=== PATIENT | female | born 1945 | race Asian ===

== ENCOUNTER 2017-09-10 20:22 | Inpatient (IN) | payer MEDICARE, MEDICAID ==
--- NOTE | 2017-09-10 21:45 | ED Physician Chart ---
ED Chief Complaint/HPI - Patient Information Date Seen:: 09/10/17 Time Seen:: 21:44 Chief Complaint:: Vomiting, abnormal labs History of Present Illness:: 72 yo female was brought from SNF to ER due to vomiting, low K, decreased PO intake. She had weight loss during past 3 months. She was hospitalized for UTI 2 weeks ago. The patient also had low back pain. Allergies:: Allergies Allergy/AdvReac Type Severity Reaction Status Date / Time No Known Allergies Allergy Verified 09/10/17 20:28 Vitals:: Vital Signs - 8 hr 09/10/17 20:25 Temp 98.0 F HR 104 RR 18 BP 116/67 O2 Sat % 98 ED Review of Systems - Review of Systems General/Constitutional: No fever, Other (weight loss) ED Past Medical History - Past Medical History Past Medical History: HTN, DM, Dyslipidemia, Dementia, Other (VZV) Social History: Non Smoker, No Alcohol, No Drug Use Surgical History: (x1), other (Cateract) Family Medical History - Family Member Mother History Unknown: Yes ED Septic Shock - <6hrs of presentation: Vital Signs: Vital Signs - 8 hr 09/10/17 20:25 Temp 98.0 F HR 104 RR 18 BP 116/67 O2 Sat % 98
[2017-09-10 21:49] LABS: HEMATOCRIT 31.3 % (41.0-60); HEMOGLOBIN 10.1 gm/dL (12-16); MEAN CELL VOLUME 86.6 fl (81-100); MEAN CORPUSCULAR HEMOGLOBIN 27.9 pg (27.0-31.0); MEAN CORPUSCULAR HGB CONC 32.2 pg (28.0-36.0); PLATELET COUNT 198 Th/cmm (150-400); RED BLOOD COUNT 3.61 Mil/cmm (3.80-5.20); RED CELL DISTRIBUTION WIDTH 18.3 % (11.5-20.0); WHITE BLOOD COUNT 5.5 Th/cmm (4.8-10.8)
[2017-09-10 21:52] LABS: MANUAL DIFF REQUIRED? YES
[2017-09-10 22:07] LABS: ALB/GLOB RATIO 0.6 (1.0-1.8); ALBUMIN 2.6 gm/dL (3.7-5.3); ALKALINE PHOSPHATASE 197 U/L (34-104); ANION GAP 16.9 (7.0-16.0); BILIRUBIN,TOTAL 4.1 mg/dL (0.3-1.0); BUN - UREA NITROGEN 5 mg/dL (7-25); CALCIUM SERUM 7.7 mg/dL (8.6-10.3); CARBON DIOXIDE 20.1 mEq/L (21.0-31.0); CHLORIDE 95 mEq/L (98-107); CREATININE - SERUM 0.9 mg/dL (0.6-1.2); GLUCOSE 319 mg/dL (70-105); SGOT 276 U/L (13-39); SGPT/ALT 50 U/L (7-52); SODIUM SERUM 127 mEq/L (136-145); TOTAL PROTEIN,SERUM 6.7 gm/dL (6.0-8.3)
[2017-09-10] MEDS ORDERED: Sodium Chloride 0.9% 1,000 ML IV ONE (22:32)
[2017-09-10 23:17] LABS: URINE MICROSCOPIC INDICATED? YES; URINE SOURCE RANDOM
[2017-09-10 23:20] LABS: URINE BILIRUBIN MODERATE (NEGATIVE); URINE BLOOD NEGATIVE (NEGATIVE); URINE GLUCOSE (UA) >=1000 mg/dL (NEGATIVE); URINE KETONE 15 mg/dL (NEGATIVE); URINE LEUKOCYTE ESTERASE SMALL (NEGATIVE); URINE NITRATE NEGATIVE (NEGATIVE); URINE PROTEIN TRACE mg/dL (NEGATIVE)
[2017-09-10 23:33] LABS: URINE CLARITY SLIGHT CLOUDY (CLEAR); URINE COLOR ORANGE
[2017-09-10 23:37] LABS: URINE BACTERIA 3+ /hpf (NONE SEEN); URINE EPITHELIAL CELLS FEW /lpf (FEW); URINE WBC >100 /hpf (0-5)
[2017-09-11] MEDS ORDERED: cefTRIAXone 1 GM in Sodium Chloride 0.9% 50 ML IV ONE (00:19)
[2017-09-11 00:41] LABS: TOTAL CELLS COUNTED 100
[2017-09-11 00:42] LABS: ANISOCYTOSIS 1+; ATYPICAL LYMPH 1 %; BAND NEUTROPHILE 2 % (0-10); EOSINOPHIL 1 % (0-5); HYPOCHROMIA 1+; LYMPHOCYTE 15 % (20-50); MONOCYTE 3 % (2-10); NEUTROPHILS 78 % (40-80); PLATELET ESTIMATE ADEQUATE (NORMAL)
[2017-09-11 07:03] LABS: ANION GAP 13.4 (7.0-16.0); BUN - UREA NITROGEN 4 mg/dL (7-25); CALCIUM SERUM 7.5 mg/dL (8.6-10.3); CARBON DIOXIDE 26.3 mEq/L (21.0-31.0); CHLORIDE 97 mEq/L (98-107); CREATININE - SERUM 0.8 mg/dL (0.6-1.2); GLUCOSE 257 mg/dL (70-105); SODIUM SERUM 134 mEq/L (136-145)
[2017-09-11 07:06] LABS: HEMATOCRIT 31.5 % (41.0-60); HEMOGLOBIN 10.2 gm/dL (12-16); MEAN CELL VOLUME 86.3 fl (81-100); MEAN CORPUSCULAR HEMOGLOBIN 27.9 pg (27.0-31.0); MEAN CORPUSCULAR HGB CONC 32.4 pg (28.0-36.0); MEAN PLATELET VOLUME 9.9 fl; PLATELET COUNT 234 Th/cmm (150-400); RED BLOOD COUNT 3.65 Mil/cmm (3.80-5.20); RED CELL DISTRIBUTION WIDTH 17.6 % (11.5-20.0)
[2017-09-11 07:14] LABS: MANUAL DIFF REQUIRED? YES
[2017-09-11 07:26] LABS: POTASSIUM SERUM 2.7 mEq/L (3.5-5.1)
[2017-09-11 08:07] LABS: EOSINOPHIL 1 % (0-5); LYMPHOCYTE 34 % (20-50); MONOCYTE 5 % (2-10); NEUTROPHILS 60 % (40-80); TOTAL CELLS COUNTED 100
[2017-09-11 08:12] VITALS: BP 120/57
[2017-09-11] MEDS ORDERED: Potassium Chloride 20 mEq ER Tab PO ONE (08:25)
[2017-09-11] MEDS ORDERED: LIDOCAINE IV ONE (10:00)
[2017-09-11] MEDS ORDERED: POTASSIUM CHLORIDE IV ONE (10:00)
[2017-09-11] MEDS ORDERED: SODIUM CHLORIDE 0.9% IV ONE (10:00)
[2017-09-11] MEDS ORDERED: Lactulose 10 Gm/15 mL 30mL UDC PO PRN (11:11)
[2017-09-11] MEDS ORDERED: INSULIN ASPART SLIDING SCALE 100 UNITS/ML UNIT SUBQ SCH (11:30)
--- NOTE | 2017-09-11 15:18 | Diagnostic Imaging Report ---
CHEST X-RAY: AP view INDICATION: Shortness of breath COMPARISON: None FINDINGS: There is elevation of the right hemidiaphragm. Increased bibasilar lung markings are noted. No focal consolidation or effusions. There is suggestion of a right calcified basal granuloma Heart size is at the upper limits of normal. Osseous structures are intact. IMPRESSION: Increased bibasal lung markings which may be due to subsegmental atelectasis versus scarring. Faint infiltrate is less likely but cannot be excluded.. Please correlate with clinical findings. Suggestion of a right basal calcified granuloma. Please with old exams, if available. A short-term follow-up PA and lateral view chest x-ray is recommended.
--- NOTE | 2017-09-11 15:56 | History & Physical ---
ADMIT DATE: 09/11/2017 CHIEF COMPLAINT: Vomiting and poor oral intake. HISTORY OF PRESENT ILLNESS: This is a 72-year-old female who was admitted from a [facility] facility to the Emergency Room due to vomiting and poor oral intake. The patient was recently hospitalized due to urinary tract infection. REVIEW OF SYSTEMS: GENERAL: This is a 72-year-old female that appears as stated, no fever, no chills. HEAD: No headache. EYES: No blurring of vision. No eye pain. NECK: Neck pain. No nuchal rigidity. CHEST: No chest pain, no palpitation. RESPIRATORY: No coughing. No shortness of breath. GASTROINTESTINAL: Positive vomiting, positive nausea, no diarrhea, no abdominal pain. MUSCULOSKELETAL: No muscle pain. No joint pain. SOCIAL HISTORY: The patient lives in a [facility] facility prior to hospitalization. SURGICAL HISTORY: The patient has history of cataract surgery. PSYCHIATRIC HISTORY: Includes dementia. PAST MEDICAL HISTORY: Hypertension, diabetes, and hyperlipidemia. PHYSICAL EXAMINATION: VITAL SIGNS: Temperature 99, heart rate of 90, blood pressure 115/52, respiration of 18, 100% on room air. HEENT: Head is atraumatic, normocephalic. Eyes, bilateral conjunctivae are clear. Bilateral pupils are equally round and reactive. NECK: Supple. No JVD. CARDIOVASCULAR: S1 and S2, without murmur. PULMONARY: Clear to auscultation. GASTROINTESTINAL: Soft and nontender without guarding. Positive bowel sounds. MUSCULOSKELETAL: No clubbing. No cyanosis noted. ASSESSMENT: 1. Urinary tract infection. 2. Dementia. 3. Hypertension. 4. Atrial fibrillation. 5. Parkinson's disease. 6. Diabetes mellitus. 7. Hypothyroidism. 8. Osteoarthritis. PLAN: We will admit the patient to Med/Surg Unit. We will continue IV antibiotics and we will wait for urine culture result. A consult with ID doctor, for ID management and also get a consult with Dr. Reina for dementia. Treatment plans were discussed with the patient's nurse. We will do medication reconciliation accordingly. JOB# [id number]
[2017-09-11] MEDS ORDERED: Non-Formulary Item 1 EA (Apixaban [Eliquis] 1 TAB) PO SCH (17:00)
[2017-09-11] MEDS: INSULIN ASPART SLIDING SCALE 100 UNITS/ML UNIT SUBQ SCH ×2 (17:11→22:46)
[2017-09-11 21:37] LABS: A1C % 9.4 % (4.0-6.0)
[2017-09-12] MEDS: Sodium Chloride 0.9% 1,000 ML IV SCH ×2 (00:07→13:50)
[2017-09-12] MEDS: cefTRIAXone 1 GM in Sodium Chloride 0.9% 50 ML IV SCH (00:08)
[2017-09-12 06:39] LABS: HEMOGLOBIN 9.7 gm/dL (12-16); MEAN PLATELET VOLUME 9.5 fl; RED CELL DISTRIBUTION WIDTH 17.5 % (11.5-20.0)
[2017-09-12 06:44] LABS: HEMATOCRIT 30.8 % (41.0-60); MEAN CELL VOLUME 86.8 fl (81-100); MEAN CORPUSCULAR HEMOGLOBIN 27.3 pg (27.0-31.0); MEAN CORPUSCULAR HGB CONC 31.5 pg (28.0-36.0); PLATELET COUNT 215 Th/cmm (150-400); RED BLOOD COUNT 3.55 Mil/cmm (3.80-5.20); WHITE BLOOD COUNT 5.7 Th/cmm (4.8-10.8)
[2017-09-12] MEDS: Levothyroxine 0.075 Mg Tab PO SCH (06:45)
[2017-09-12 06:49] LABS: MANUAL DIFF REQUIRED? YES
[2017-09-12 07:21] LABS: ALB/GLOB RATIO 0.6 (1.0-1.8); ALBUMIN 2.3 gm/dL (3.7-5.3); ALKALINE PHOSPHATASE 174 U/L (34-104); ANION GAP 12.2 (7.0-16.0); BILIRUBIN,TOTAL 3.7 mg/dL (0.3-1.0); BUN - UREA NITROGEN 5 mg/dL (7-25); CALCIUM SERUM 7.6 mg/dL (8.6-10.3); CARBON DIOXIDE 23.6 mEq/L (21.0-31.0); CHLORIDE 105 mEq/L (98-107); CREATININE - SERUM 0.8 mg/dL (0.6-1.2); POTASSIUM SERUM 3.8 mEq/L (3.5-5.1); SGOT 188 U/L (13-39); SGPT/ALT 53 U/L (7-52); SODIUM SERUM 137 mEq/L (136-145); TOTAL PROTEIN,SERUM 5.9 gm/dL (6.0-8.3)
[2017-09-12 07:24] LABS: GLUCOSE 167 mg/dL (70-105)
[2017-09-12 07:41] LABS: EOSINOPHIL 2 % (0-5); LYMPHOCYTE 41 % (20-50); MONOCYTE 8 % (2-10); NEUTROPHILS 49 % (40-80); TOTAL CELLS COUNTED 100
--- NOTE | 2017-09-12 08:55 | General Progress Note ---
Subjective - Review of Systems Events since last encounter: patient awake alert in no distress Objective - Results Result Diagrams: 09/12/17 05:55 09/12/17 05:55 Recent Labs: Laboratory Last Values WBC 5.7 Th/cmm (4.8-10.8) 09/12/17 05:55 RBC 3.55 Mil/cmm (3.80-5.20) L 09/12/17 05:55 Hgb 9.7 gm/dL (12-16) L 09/12/17 05:55 Hct 30.8 % (41.0-60) L 09/12/17 05:55 MCV 86.8 fl (81-100) 09/12/17 05:55 MCH 27.3 pg (27.0-31.0) 09/12/17 05:55 MCHC Differential 31.5 pg (28.0-36.0) 09/12/17 05:55 RDW 17.5 % (11.5-20.0) 09/12/17 05:55 Plt Count 215 Th/cmm (150-400) 09/12/17 05:55 MPV 9.5 fl 09/12/17 05:55 Band Neutrophils % 2 % (0-10) 09/10/17 21:39 Neutrophils (Manual) 49 % (40-80) 09/12/17 05:55 Lymphocytes 41 % (20-50) 09/12/17 05:55 Monocytes 8 % (2-10) 09/12/17 05:55 Eosinophils 2 % (0-5) 09/12/17 05:55 Atypical Lymphocytes 1 % 09/10/17 21:39 Hypochromia 1+ 09/10/17 21:39 Platelet Estimate ADEQUATE (NORMAL) 09/10/17 21:39 Anisocytosis 1+ 09/10/17 21:39 Microcytosis 1+ 09/10/17 21:39 Sodium 137 mEq/L (136-145) 09/12/17 05:55 Potassium 3.8 mEq/L (3.5-5.1) 09/12/17 05:55 Chloride 105 mEq/L (98-107) 09/12/17 05:55 Carbon Dioxide 23.6 mEq/L (21.0-31.0) 09/12/17 05:55 Anion Gap 12.2 (7.0-16.0) 09/12/17 05:55 BUN 5 mg/dL (7-25) L 09/12/17 05:55 Creatinine 0.8 mg/dL (0.6-1.2) 09/12/17 05:55 Est GFR ( Amer) TNP 09/12/17 05:55 Est GFR (Non-Af Amer) TNP 09/12/17 05:55 BUN/Creatinine Ratio 6.3 09/12/17 05:55 Glucose 167 mg/dL (70-105) H D 09/12/17 05:55 POC Glucose 171 MG/DL (70 - 105) H 09/12/17 05:44 Hemoglobin A1c % 9.4 % (4.0-6.0) H 09/11/17 06:22 Calcium 7.6 mg/dL (8.6-10.3) L 09/12/17 05:55 Total Bilirubin 3.7 mg/dL (0.3-1.0) H 09/12/17 05:55 AST 188 U/L (13-39) H 09/12/17 05:55 ALT 53 U/L (7-52) H 09/12/17 05:55 Alkaline Phosphatase 174 U/L (34-104) H 09/12/17 05:55 Total Protein 5.9 gm/dL (6.0-8.3) L 09/12/17 05:55 Albumin 2.3 gm/dL (3.7-5.3) L 09/12/17 05:55 Globulin 3.6 gm/dL 09/12/17 05:55 Albumin/Globulin Ratio 0.6 (1.0-1.8) L 09/12/17 05:55 TSH 1.27 uIU/ml (0.34-5.60) 09/11/17 06:22 Urine Source RANDOM 09/10/17 23:05 Urine Color ORANGE 09/10/17 23:05 Urine Clarity SLIGHT CLOUDY (CLEAR) H 09/10/17 23:05 Urine pH 6.0 (4.6 - 8.0) 09/10/17 23:05 Ur Specific [place] 1.015 (1.005-1.030) 09/10/17 23:05 Urine Protein TRACE mg/dL (NEGATIVE) 09/10/17 23:05 Urine Glucose (UA) >=1000 mg/dL (NEGATIVE) H 09/10/17 23:05 Urine Ketones 15 mg/dL (NEGATIVE) H 09/10/17 23:05 Urine Blood NEGATIVE (NEGATIVE) 09/10/17 23:05 Urine Nitrate NEGATIVE (NEGATIVE) 09/10/17 23:05 Urine Bilirubin MODERATE (NEGATIVE) H 09/10/17 23:05 Urine Urobilinogen 1.0 E.U./dL (0.2 - 1.0) 09/10/17 23:05 Ur Leukocyte Esterase SMALL (NEGATIVE) H 09/10/17 23:05 Urine RBC 2-5 /hpf (0-5) 09/10/17 23:05 Urine WBC >100 /hpf (0-5) H 09/10/17 23:05 Ur Epithelial Cells FEW /lpf (FEW) 09/10/17 23:05 Urine Bacteria 3+ /hpf (NONE SEEN) H 09/10/17 23:05 - Physical Exam Vitals and I&O: Vital Signs Temp 99.1 F 09/11/17 16:00 Pulse 102 09/11/17 16:00 Resp 18 09/11/17 20:00 BP 105/62 09/11/17 16:00 Pulse Ox 96 09/11/17 16:00 Intake & Output 09/11/17 09/12/17 09/12/17 18:59 06:59 18:59 Intake Total 200 410 Balance 200 410 Weight (lbs) 61.235 kg 61.235 kg Intake: Intake, IV Amount 50 cefTRIAXone 1 gm In 50 Sodium Chloride 0.9% 50 ml @ 100 mls/hr IV Q24HR [facility] Rx#:[id number] Oral 200 360 Other: # Voids 3 3 # Bowel Movements 0 Active Medications: Current Medications Acetaminophen (Tylenol) 650 mg PO Q4HR PRN PRN Reason: temp >100.4F Stop: 11/10/17 11:10 Acetaminophen (Tylenol) 650 mg PO Q4HR PRN PRN Reason: Pain (Mild) Stop: 11/10/17 11:10 Amlodipine Besylate (Norvasc) 5 mg PO DAILY [facility] Stop: 11/11/17 08:59 Carbidopa/Levodopa (Sinemet 25 Mg-250 Mg) 2 tab PO BID [facility] Stop: 11/10/17 16:59 Last Admin: 09/11/17 18:05 Dose: 2 tab Donepezil HCl (Aricept) 10 mg PO HS [facility] Stop: 11/10/17 20:59 Last Admin: 09/11/17 22:46 Dose: Not Given Gabapentin (Neurontin) 100 mg PO TID [facility] Stop: 11/10/17 13:59 Last Admin: 09/11/17 22:46 Dose: Not Given Ceftriaxone Sodium 1 gm/ (Sodium Chloride) 50 mls @ 100 mls/hr IV Q24HR [facility] Stop: 11/11/17 00:59 Last Infusion: 09/12/17 00:38 Dose: Infused Sodium Chloride (Nacl 0.9%) 1,000 mls @ 75 mls/hr IV .[id number] [facility] Stop: 11/10/17 05:28 Last Admin: 09/12/17 00:07 Dose: 75 mls/hr Insulin Aspart (Novolog Insulin Sliding Scale) 0 units SUBQ ACHS [facility] PRN Reason: Protocol Stop: 11/10/17 16:29 Last Admin: 09/11/17 22:46 Dose: Not Given Lactulose (Cephulac) 10 gm PO Q6HR PRN PRN Reason: Constipation Stop: 11/10/17 11:10 Levothyroxine Sodium (Synthroid) 0.075 mg PO QDAC [facility] Stop: 11/11/17 07:29 Last Admin: 09/12/17 06:45 Dose: 0.075 mg Memantine (Namenda) 10 mg PO BID [facility] Stop: 11/10/17 16:59 Last Admin: 09/11/17 18:05 Dose: 10 mg Ondansetron HCl (Zofran) 4 mg IV Q8H PRN PRN Reason: Nausea / Vomiting Stop: 11/10/17 15:18 Rivaroxaban (Xarelto) 10 mg PO DAILY [facility] Stop: 11/11/17 08:59 Tramadol HCl (Ultram) 50 mg PO Q6H PRN PRN Reason: Pain (Moderate) Stop: 11/10/17 11:10
[2017-09-12] MEDS: INSULIN ASPART SLIDING SCALE 100 UNITS/ML UNIT SUBQ SCH ×4 (09:10→21:35)
--- NOTE | 2017-09-12 12:44 | Consultation ---
Consult Note - Consult Note Service Date: 09/12/17 Referring Physician: Altaf Henry Consult Note: PHYSICIAN Consultation Note: Date of Admission: 09/11/17 Purpose of Consultation: UTI. Chief Complaint: Patient DESTIN CHAPA was admitted to location Medical/Surgical Unit I with UTI. History of Present Illness: 72 female with a past medical history of,brought in from nursing facility for vomiting and poor oral intake. On initial evaluation Her temperature was 98F and WC count 5700. Urinalysis showed pyuria and bacteriuria. Urine culture grew more than 100,000 gram-negative rods. Infectious disease consultation was called for antibiotic management minimal patient was already started on Rocephin. Past Medical History: dementia, diabetes mellitus type 2, hypertension, hyperlipidemia Allergies Allergy/AdvReac Type Severity Reaction Status Date / Time No Known Allergies Allergy Verified 09/10/17 20:28 Vital Signs Temp 96.8 F 09/12/17 08:00 Pulse 102 09/12/17 09:04 Resp 17 09/12/17 08:00 BP 122/62 09/12/17 09:04 Pulse Ox 98 09/12/17 08:00 Intake & Output 09/11/17 09/12/17 09/12/17 18:59 06:59 18:59 Intake Total 200 410 Balance 200 410 Weight (lbs) 61.235 kg 61.235 kg Intake: Intake, IV Amount 50 cefTRIAXone 1 gm In 50 Sodium Chloride 0.9% 50 ml @ 100 mls/hr IV Q24HR [facility] Rx#:[id number] Oral 200 360 Other: # Voids 3 3 # Bowel Movements 0 Laboratory Results - last 24 hr 09/11/17 09/11/17 09/11/17 06:22 12:59 17:02 WBC RBC Hgb Hct MCV MCH MCHC Differential RDW Plt Count MPV Neutrophils (Manual) Lymphocytes Monocytes Eosinophils Sodium Potassium Chloride Carbon Dioxide Anion Gap BUN Creatinine Est GFR ( Amer) Est GFR (Non-Af Amer) BUN/Creatinine Ratio Glucose POC Glucose 242 H 101 Hemoglobin A1c % 9.4 H Calcium Total Bilirubin AST ALT Alkaline Phosphatase Total Protein Albumin Globulin Albumin/Globulin Ratio 09/12/17 09/12/17 09/12/17 05:44 05:55 05:55 WBC 5.7 RBC 3.55 L Hgb 9.7 L Hct 30.8 L MCV 86.8 MCH 27.3 MCHC Differential 31.5 RDW 17.5 Plt Count 215 MPV 9.5 Neutrophils (Manual) 49 Lymphocytes 41 Monocytes 8 Eosinophils 2 Sodium 137 Potassium 3.8 Chloride 105 Carbon Dioxide 23.6 Anion Gap 12.2 BUN 5 L Creatinine 0.8 Est GFR ( Amer) TNP Est GFR (Non-Af Amer) TNP BUN/Creatinine Ratio 6.3 Glucose 167 H D POC Glucose 171 H Hemoglobin A1c % Calcium 7.6 L Total Bilirubin 3.7 H AST 188 H ALT 53 H Alkaline Phosphatase 174 H Total Protein 5.9 L Albumin 2.3 L Globulin 3.6 Albumin/Globulin Ratio 0.6 L 09/12/17 11:27 WBC RBC Hgb Hct MCV MCH MCHC Differential RDW Plt Count MPV Neutrophils (Manual) Lymphocytes Monocytes Eosinophils Sodium Potassium Chloride Carbon Dioxide Anion Gap BUN Creatinine Est GFR ( Amer) Est GFR (Non-Af Amer) BUN/Creatinine Ratio Glucose POC Glucose 175 H Hemoglobin A1c % Calcium Total Bilirubin AST ALT Alkaline Phosphatase Total Protein Albumin Globulin Albumin/Globulin Ratio Home Medication Medication Instructions Recorded Type Acetaminophen [Tylenol] 650 mg PO Q4HR PRN 09/10/17 History Acetaminophen [Tylenol] 650 mg PO Q4HR PRN 09/10/17 History Amlodipine Besylate 5 mg PO DAILY 09/10/17 History Apixaban [Eliquis] 1 tab PO BID 09/10/17 History Carbidopa/Levodopa 2 tab PO BID 09/10/17 History [Carbidopa-Levodopa 25-250 Tab] Donepezil Hcl [Aricept] 10 mg PO HS 09/10/17 History Gabapentin [Neurontin*] 100 mg PO TID 09/10/17 History Insulin Aspart Sliding Scale 1 units SUBQ ACHS 09/10/17 History [NovoLOG INSULIN SLIDING SCALE] Lactulose [Cephulac] 15 ml PO Q6HR PRN 09/10/17 History Levothyroxine [Synthroid] 0.075 mg PO QDAC 09/10/17 History Memantine [Namenda] 10 mg PO BID 09/10/17 History Tramadol HCl [Ultram] 50 mg PO Q6H PRN 09/10/17 History Current Medications Generic Name Dose Route Start Last Admin Trade Name Freq PRN Reason Stop Dose Admin Acetaminophen 650 mg 09/11/17 11:11 Tylenol PO 11/10/17 11:10 Q4HR PRN temp >100.4F Acetaminophen 650 mg 09/11/17 11:11 Tylenol PO 11/10/17 11:10 Q4HR PRN Pain (Mild) Amlodipine Besylate 5 mg 09/12/17 09:00 09/12/17 09:04 Norvasc PO 11/11/17 08:59 5 mg DAILY [facility] Administration Carbidopa/Levodopa 2 tab 09/11/17 17:00 09/12/17 09:04 Sinemet 25 Mg-250 Mg PO 11/10/17 16:59 2 tab BID [facility] Administration Donepezil HCl 10 mg 09/11/17 21:00 09/11/17 22:46 Aricept PO 11/10/17 20:59 Not Given HS [facility] Gabapentin 100 mg 09/11/17 14:00 09/12/17 09:04 Neurontin PO 11/10/17 13:59 100 mg TID [facility] Administration Ceftriaxone Sodium 1 gm/ 50 mls @ 100 mls/hr 09/12/17 01:00 09/12/17 00:38 Sodium Chloride IV 11/11/17 00:59 Infused Q24HR [facility] Infusion Sodium Chloride 1,000 mls @ 75 mls/hr 09/11/17 05:29 09/12/17 00:07 Nacl 0.9% IV 11/10/17 05:28 75 mls/hr .[id number] [facility] Administration Insulin Aspart 0 units 09/11/17 16:30 09/12/17 11:53 Novolog Insulin Sliding Scale SUBQ 11/10/17 16:29 2 units ACHS [facility] Administration Protocol Lactulose 10 gm 09/11/17 11:11 Cephulac PO 11/10/17 11:10 Q6HR PRN Constipation Levothyroxine Sodium 0.075 mg 09/12/17 07:30 09/12/17 06:45 Synthroid PO 11/11/17 07:29 0.075 mg QDAC [facility] Administration Memantine 10 mg 09/11/17 17:00 09/12/17 09:04 Namenda PO 11/10/17 16:59 10 mg BID [facility] Administration Ondansetron HCl 4 mg 09/11/17 15:19 Zofran IV 11/10/17 15:18 Q8H PRN Nausea / Vomiting Rivaroxaban 10 mg 09/12/17 09:00 09/12/17 09:04 Xarelto PO 11/11/17 08:59 10 mg DAILY [facility] Administration Tramadol HCl 50 mg 09/11/17 11:11 Ultram PO 11/10/17 11:10 Q6H PRN Pain (Moderate) Review of Systems: A 12 point ROS was reviewed with the pertinent positive and negatives noted in the HPI. Social History Smoking Status Never smoker Family Medical History Family Medical History Start: 09/11/17 01: 27 Freq: ONCE Status: Active Document 09/11/17 01:27 AMPARO (Rec: 09/11/17 08:12 AMPARO [id number]) Family Medical History Mother History Unknown Yes Physical Exam: General: Well-nourished well-developed not in acute distress. HEENT: Head: Normocytic, atraumatic. Oral cavity: Moist, pink tongue. Eyes: Pallor is present icterus. Neck: Cardio: S1 and S2 within normal limits regular rhythm. Respiratory: Vesicular breath sound no crackles no wheezing. Abdominal: Soft, nontender nondistended bowel sounds present. Genital/Urinary: Extremities: No cyanosis, no clubbing, no edema. Pulses are palpable in all 4 limbs. Neurological: Confused. Assessment: 1. UTI. 2. Diabetes mellitus type 2. 3. Hypertension. 4. Hyperlipidemia. 5. Dementia Plan: Continue Rocephin. Thank you, Dr. Henry, for involving me in taking care of this patient. Signed, Grant Olmstead M.D. [id number]
[2017-09-13] MEDS: cefTRIAXone 1 GM in Sodium Chloride 0.9% 50 ML IV SCH (01:40)
[2017-09-13] MEDS: INSULIN ASPART SLIDING SCALE 100 UNITS/ML UNIT SUBQ SCH ×4 (07:51→20:58)
[2017-09-13] MEDS: Levothyroxine 0.075 Mg Tab PO SCH (09:34)
--- NOTE | 2017-09-13 12:22 | Internal Medicine Prog Note ---
Internal Medicine Subjective - Subjective Service Date: 09/13/17 Patient seen and examined:: with staff Patient is:: awake, verbal Per staff patient has:: tolerating meds Internal Medicine Objective - Results Result Diagrams: 09/12/17 05:55 09/12/17 05:55 Recent Labs: Laboratory Last Values WBC 5.7 Th/cmm (4.8-10.8) 09/12/17 05:55 RBC 3.55 Mil/cmm (3.80-5.20) L 09/12/17 05:55 Hgb 9.7 gm/dL (12-16) L 09/12/17 05:55 Hct 30.8 % (41.0-60) L 09/12/17 05:55 MCV 86.8 fl (81-100) 09/12/17 05:55 MCH 27.3 pg (27.0-31.0) 09/12/17 05:55 MCHC Differential 31.5 pg (28.0-36.0) 09/12/17 05:55 RDW 17.5 % (11.5-20.0) 09/12/17 05:55 Plt Count 215 Th/cmm (150-400) 09/12/17 05:55 MPV 9.5 fl 09/12/17 05:55 Band Neutrophils % 2 % (0-10) 09/10/17 21:39 Neutrophils (Manual) 49 % (40-80) 09/12/17 05:55 Lymphocytes 41 % (20-50) 09/12/17 05:55 Monocytes 8 % (2-10) 09/12/17 05:55 Eosinophils 2 % (0-5) 09/12/17 05:55 Atypical Lymphocytes 1 % 09/10/17 21:39 Hypochromia 1+ 09/10/17 21:39 Platelet Estimate ADEQUATE (NORMAL) 09/10/17 21:39 Anisocytosis 1+ 09/10/17 21:39 Microcytosis 1+ 09/10/17 21:39 Sodium 137 mEq/L (136-145) 09/12/17 05:55 Potassium 3.8 mEq/L (3.5-5.1) 09/12/17 05:55 Chloride 105 mEq/L (98-107) 09/12/17 05:55 Carbon Dioxide 23.6 mEq/L (21.0-31.0) 09/12/17 05:55 Anion Gap 12.2 (7.0-16.0) 09/12/17 05:55 BUN 5 mg/dL (7-25) L 09/12/17 05:55 Creatinine 0.8 mg/dL (0.6-1.2) 09/12/17 05:55 Est GFR ( Amer) TNP 09/12/17 05:55 Est GFR (Non-Af Amer) TNP 09/12/17 05:55 BUN/Creatinine Ratio 6.3 09/12/17 05:55 Glucose 167 mg/dL (70-105) H D 09/12/17 05:55 POC Glucose 111 MG/DL (70 - 105) H 09/12/17 16:54 Hemoglobin A1c % 9.4 % (4.0-6.0) H 09/11/17 06:22 Calcium 7.6 mg/dL (8.6-10.3) L 09/12/17 05:55 Total Bilirubin 3.7 mg/dL (0.3-1.0) H 09/12/17 05:55 AST 188 U/L (13-39) H 09/12/17 05:55 ALT 53 U/L (7-52) H 09/12/17 05:55 Alkaline Phosphatase 174 U/L (34-104) H 09/12/17 05:55 Total Protein 5.9 gm/dL (6.0-8.3) L 09/12/17 05:55 Albumin 2.3 gm/dL (3.7-5.3) L 09/12/17 05:55 Globulin 3.6 gm/dL 09/12/17 05:55 Albumin/Globulin Ratio 0.6 (1.0-1.8) L 09/12/17 05:55 TSH 1.27 uIU/ml (0.34-5.60) 09/11/17 06:22 Urine Source RANDOM 09/10/17 23:05 Urine Color ORANGE 09/10/17 23:05 Urine Clarity SLIGHT CLOUDY (CLEAR) H 09/10/17 23:05 Urine pH 6.0 (4.6 - 8.0) 09/10/17 23:05 Ur Specific [place] 1.015 (1.005-1.030) 09/10/17 23:05 Urine Protein TRACE mg/dL (NEGATIVE) 09/10/17 23:05 Urine Glucose (UA) >=1000 mg/dL (NEGATIVE) H 09/10/17 23:05 Urine Ketones 15 mg/dL (NEGATIVE) H 09/10/17 23:05 Urine Blood NEGATIVE (NEGATIVE) 09/10/17 23:05 Urine Nitrate NEGATIVE (NEGATIVE) 09/10/17 23:05 Urine Bilirubin MODERATE (NEGATIVE) H 09/10/17 23:05 Urine Urobilinogen 1.0 E.U./dL (0.2 - 1.0) 09/10/17 23:05 Ur Leukocyte Esterase SMALL (NEGATIVE) H 09/10/17 23:05 Urine RBC 2-5 /hpf (0-5) 09/10/17 23:05 Urine WBC >100 /hpf (0-5) H 09/10/17 23:05 Ur Epithelial Cells FEW /lpf (FEW) 09/10/17 23:05 Urine Bacteria 3+ /hpf (NONE SEEN) H 09/10/17 23:05 - Physical Exam Vitals and I&O: Vital Signs Temp 99.2 F 09/13/17 08:00 Pulse 96 09/13/17 09:13 Resp 18 09/13/17 10:21 BP 108/52 09/13/17 09:13 Pulse Ox 100 09/13/17 08:00 Intake & Output 09/12/17 09/13/17 09/13/17 18:59 06:59 18:59 Intake Total 1000 450 Balance 1000 450 Weight (lbs) 135 lb Intake: Intake, IV Amount 1000 Sodium Chloride 0.9% 1, 1000 000 ml @ 75 mls/hr IV . [id number] [facility] Rx#:[id number] Oral 450 Other: # Bowel Movements 0 Active Medications: Current Medications Acetaminophen (Tylenol) 650 mg PO Q4HR PRN PRN Reason: temp >100.4F Stop: 11/10/17 11:10 Acetaminophen (Tylenol) 650 mg PO Q4HR PRN PRN Reason: Pain (Mild) Stop: 11/10/17 11:10 Amlodipine Besylate (Norvasc) 5 mg PO DAILY [facility] Stop: 11/11/17 08:59 Last Admin: 09/13/17 09:13 Dose: 5 mg Carbidopa/Levodopa (Sinemet 25 Mg-250 Mg) 2 tab PO BID [facility] Stop: 11/10/17 16:59 Last Admin: 09/13/17 09:14 Dose: 2 tab Donepezil HCl (Aricept) 10 mg PO HS [facility] Stop: 11/10/17 20:59 Last Admin: 09/12/17 21:35 Dose: 10 mg Gabapentin (Neurontin) 100 mg PO TID [facility] Stop: 11/10/17 13:59 Last Admin: 09/13/17 09:14 Dose: 100 mg Ceftriaxone Sodium 1 gm/ (Sodium Chloride) 50 mls @ 100 mls/hr IV Q24HR [facility] Stop: 11/11/17 00:59 Last Admin: 09/13/17 01:40 Dose: 100 mls/hr Sodium Chloride (Nacl 0.9%) 1,000 mls @ 75 mls/hr IV .[id number] [facility] Stop: 11/10/17 05:28 Last Admin: 09/12/17 13:50 Dose: 75 mls/hr Insulin Aspart (Novolog Insulin Sliding Scale) 0 units SUBQ ACHS [facility] PRN Reason: Protocol Stop: 11/10/17 16:29 Last Admin: 09/13/17 07:51 Dose: Not Given Lactulose (Cephulac) 10 gm PO Q6HR PRN PRN Reason: Constipation Stop: 11/10/17 11:10 Levothyroxine Sodium (Synthroid) 0.075 mg PO QDAC [facility] Stop: 11/11/17 07:29 Last Admin: 09/13/17 09:34 Dose: 0.075 mg Memantine (Namenda) 10 mg PO BID [facility] Stop: 11/10/17 16:59 Last Admin: 09/13/17 09:14 Dose: 10 mg Mupirocin (Bactroban Oint) 1 appl NS BID [facility] Stop: 09/17/17 09:01 Last Admin: 09/13/17 09:15 Dose: 1 appl Ondansetron HCl (Zofran) 4 mg IV Q8H PRN PRN Reason: Nausea / Vomiting Stop: 11/10/17 15:18 Rivaroxaban (Xarelto) 10 mg PO DAILY [facility] Stop: 11/11/17 08:59 Last Admin: 09/13/17 09:13 Dose: 10 mg Tramadol HCl (Ultram) 50 mg PO Q6H PRN PRN Reason: Pain (Moderate) Stop: 11/10/17 11:10 General: alert HEENT: NC/AT, PERRLA Neck: Supple Lungs: CTAB Cardiovascular: RRR, Normal S1, Normal S2 Abdomen: soft, non-tender, non-distended, positive bowel sound Neurological: alert Internal Medicine Assmt/Plan - Assessment Assessment: 1. UTI. 2. Diabetes mellitus type 2. 3. Hypertension. 4. Hyperlipidemia. 5. Dementia - Plan Plan: continue ivabx follow up labs in am continue current orders
--- NOTE | 2017-09-13 13:31 | Diagnostic Imaging Report ---
Renal ultrasound HISTORY: Pain, pyelonephritis The right kidney is normal in size (10.4 x 3.9 x 4.5 cm). No focal lesions. No hydronephrosis. Normal cortical echogenicity. The left kidney is normal in size (10.4 x 4.7 x 5.0 cm). Normal cortical contour and echogenicity. No focal lesions. No hydronephrosis. No intraluminal abnormality seen within the urinary bladder. IMPRESSION: 1. Negative exam of the kidneys
[2017-09-13] MEDS: Sodium Chloride 0.9% 1,000 ML IV SCH (16:43)
[2017-09-14] MEDS: cefTRIAXone 1 GM in Sodium Chloride 0.9% 50 ML IV SCH (00:23)
--- NOTE | 2017-09-14 00:40 | Consultation ---
DATE OF CONSULTATION: 09/13/2017 IDENTIFYING INFORMATION: The patient is a 72-year-old female. REASON FOR CONSULTATION: I was asked to see the patient who is demented. The patient was admitted because of UTI. The patient was on the medical floor. She came from a nursing facility with vomiting, poor intake. The patient has a history of dementia, diabetes mellitus, hypertension, hyperlipidemia. The patient was a poor historian, unable to make a safe plan for self-care, unpredictable and impulsive. She was rambling. When asked about her age, she said 48. When asked about her family, she was not sure if she has 2 children or 3 children. Unable to tell me the date, she believed this is July, not sure of the year. PAST PSYCHIATRIC HISTORY: Unable to obtain. MEDICAL HISTORY: As per the medical doctor. ALLERGIES: The patient has no known drug allergies. MEDICATIONS: The patient has been on Sinemet and Aricept 10 mg at bedtime, Neurontin 100 mg 3 times a day, lactulose, levothyroxine, Namenda 10 mg twice a day. FAMILY AND SOCIAL HISTORY: The patient is unable to give information regarding family history. She is confused about how many children she has. MENTAL STATUS EXAMINATION: She denies any suicidal ideation. No homicidal ideation. No apparent paranoia. She is demented, confused. Her long and short-term memory is poor. Unable tell her age, where she is, why she is here. Her insight and judgment is impaired. IMPRESSION: AXIS I: Dementia with behavior disturbances. MEDICAL DIAGNOSES: Deferred to the medical doctor and recommend to continue her medication. The patient needs follow up with the psychiatrist upon discharge. If she continues to be agitated, she can go to [facility]. Thank you very much for allowing me to participate in the care of this most interesting lady. JOB# [id number]
[2017-09-14] MEDS: Levothyroxine 0.075 Mg Tab PO SCH (06:41)
[2017-09-14] MEDS: Sodium Chloride 0.9% 1,000 ML IV SCH ×2 (06:41→21:45)
[2017-09-14] MEDS: INSULIN ASPART SLIDING SCALE 100 UNITS/ML UNIT SUBQ SCH ×4 (08:51→20:58)
[2017-09-14 09:30] LABS: HEMATOCRIT 29.7 % (41.0-60); HEMOGLOBIN 9.6 gm/dL (12-16); MEAN CELL VOLUME 86.4 fl (81-100); MEAN CORPUSCULAR HEMOGLOBIN 27.9 pg (27.0-31.0); MEAN CORPUSCULAR HGB CONC 32.3 pg (28.0-36.0); MEAN PLATELET VOLUME 8.5 fl; PLATELET COUNT 222 Th/cmm (150-400); RED BLOOD COUNT 3.44 Mil/cmm (3.80-5.20); RED CELL DISTRIBUTION WIDTH 17.9 % (11.5-20.0)
--- NOTE | 2017-09-14 09:40 | Infectious Disease Prog Note ---
Infectious Disease Subjective - Review of Systems Service Date: 09/14/17 Subjective: There is no new change, no fever. Infectious Disease Objective - Results Result Diagrams: 09/12/17 05:55 09/12/17 05:55 Recent Labs: Laboratory Last Values WBC 5.7 Th/cmm (4.8-10.8) 09/12/17 05:55 RBC 3.55 Mil/cmm (3.80-5.20) L 09/12/17 05:55 Hgb 9.7 gm/dL (12-16) L 09/12/17 05:55 Hct 30.8 % (41.0-60) L 09/12/17 05:55 MCV 86.8 fl (81-100) 09/12/17 05:55 MCH 27.3 pg (27.0-31.0) 09/12/17 05:55 MCHC Differential 31.5 pg (28.0-36.0) 09/12/17 05:55 RDW 17.5 % (11.5-20.0) 09/12/17 05:55 Plt Count 215 Th/cmm (150-400) 09/12/17 05:55 MPV 9.5 fl 09/12/17 05:55 Band Neutrophils % 2 % (0-10) 09/10/17 21:39 Neutrophils (Manual) 49 % (40-80) 09/12/17 05:55 Lymphocytes 41 % (20-50) 09/12/17 05:55 Monocytes 8 % (2-10) 09/12/17 05:55 Eosinophils 2 % (0-5) 09/12/17 05:55 Atypical Lymphocytes 1 % 09/10/17 21:39 Hypochromia 1+ 09/10/17 21:39 Platelet Estimate ADEQUATE (NORMAL) 09/10/17 21:39 Anisocytosis 1+ 09/10/17 21:39 Microcytosis 1+ 09/10/17 21:39 Sodium 137 mEq/L (136-145) 09/12/17 05:55 Potassium 3.8 mEq/L (3.5-5.1) 09/12/17 05:55 Chloride 105 mEq/L (98-107) 09/12/17 05:55 Carbon Dioxide 23.6 mEq/L (21.0-31.0) 09/12/17 05:55 Anion Gap 12.2 (7.0-16.0) 09/12/17 05:55 BUN 5 mg/dL (7-25) L 09/12/17 05:55 Creatinine 0.8 mg/dL (0.6-1.2) 09/12/17 05:55 Est GFR ( Amer) TNP 09/12/17 05:55 Est GFR (Non-Af Amer) TNP 09/12/17 05:55 BUN/Creatinine Ratio 6.3 09/12/17 05:55 Glucose 167 mg/dL (70-105) H D 09/12/17 05:55 POC Glucose 215 MG/DL (70 - 105) H 09/14/17 07:47 Hemoglobin A1c % 9.4 % (4.0-6.0) H 09/11/17 06:22 Calcium 7.6 mg/dL (8.6-10.3) L 09/12/17 05:55 Total Bilirubin 3.7 mg/dL (0.3-1.0) H 09/12/17 05:55 AST 188 U/L (13-39) H 09/12/17 05:55 ALT 53 U/L (7-52) H 09/12/17 05:55 Alkaline Phosphatase 174 U/L (34-104) H 09/12/17 05:55 Total Protein 5.9 gm/dL (6.0-8.3) L 09/12/17 05:55 Albumin 2.3 gm/dL (3.7-5.3) L 09/12/17 05:55 Globulin 3.6 gm/dL 09/12/17 05:55 Albumin/Globulin Ratio 0.6 (1.0-1.8) L 09/12/17 05:55 TSH 1.27 uIU/ml (0.34-5.60) 09/11/17 06:22 Urine Source RANDOM 09/10/17 23:05 Urine Color ORANGE 09/10/17 23:05 Urine Clarity SLIGHT CLOUDY (CLEAR) H 09/10/17 23:05 Urine pH 6.0 (4.6 - 8.0) 09/10/17 23:05 Ur Specific [place] 1.015 (1.005-1.030) 09/10/17 23:05 Urine Protein TRACE mg/dL (NEGATIVE) 09/10/17 23:05 Urine Glucose (UA) >=1000 mg/dL (NEGATIVE) H 09/10/17 23:05 Urine Ketones 15 mg/dL (NEGATIVE) H 09/10/17 23:05 Urine Blood NEGATIVE (NEGATIVE) 09/10/17 23:05 Urine Nitrate NEGATIVE (NEGATIVE) 09/10/17 23:05 Urine Bilirubin MODERATE (NEGATIVE) H 09/10/17 23:05 Urine Urobilinogen 1.0 E.U./dL (0.2 - 1.0) 09/10/17 23:05 Ur Leukocyte Esterase SMALL (NEGATIVE) H 09/10/17 23:05 Urine RBC 2-5 /hpf (0-5) 09/10/17 23:05 Urine WBC >100 /hpf (0-5) H 09/10/17 23:05 Ur Epithelial Cells FEW /lpf (FEW) 09/10/17 23:05 Urine Bacteria 3+ /hpf (NONE SEEN) H 09/10/17 23:05 - Physical Exam Vitals and I&O: Vital Signs Temp 97.9 F 09/14/17 04:00 Pulse 126 09/14/17 04:00 Resp 18 09/14/17 04:00 BP 124/52 09/14/17 04:00 Pulse Ox 100 09/14/17 04:00 Intake & Output 09/13/17 09/14/17 09/14/17 18:59 06:59 18:59 Intake Total 1250 Balance 1250 Weight (lbs) 61.235 kg Intake: Intake, IV Amount 1000 Sodium Chloride 0.9% 1, 1000 000 ml @ 75 mls/hr IV . [id number] [facility] Rx#:[id number] Oral 250 Active Medications: Current Medications Acetaminophen (Tylenol) 650 mg PO Q4HR PRN PRN Reason: temp >100.4F Stop: 11/10/17 11:10 Acetaminophen (Tylenol) 650 mg PO Q4HR PRN PRN Reason: Pain (Mild) Stop: 11/10/17 11:10 Amlodipine Besylate (Norvasc) 5 mg PO DAILY [facility] Stop: 11/11/17 08:59 Last Admin: 09/13/17 09:13 Dose: 5 mg Carbidopa/Levodopa (Sinemet 25 Mg-250 Mg) 2 tab PO BID [facility] Stop: 11/10/17 16:59 Last Admin: 09/13/17 16:40 Dose: 2 tab Donepezil HCl (Aricept) 10 mg PO HS [facility] Stop: 11/10/17 20:59 Last Admin: 09/13/17 20:54 Dose: 10 mg Gabapentin (Neurontin) 100 mg PO TID [facility] Stop: 11/10/17 13:59 Last Admin: 09/13/17 21:51 Dose: Not Given Ceftriaxone Sodium 1 gm/ (Sodium Chloride) 50 mls @ 100 mls/hr IV Q24HR [facility] Stop: 11/11/17 00:59 Last Admin: 09/14/17 00:23 Dose: 100 mls/hr Sodium Chloride (Nacl 0.9%) 1,000 mls @ 75 mls/hr IV .[id number] [facility] Stop: 11/10/17 05:28 Last Admin: 09/14/17 06:41 Dose: 75 mls/hr Insulin Aspart (Novolog Insulin Sliding Scale) 0 units SUBQ ACHS [facility] PRN Reason: Protocol Stop: 11/10/17 16:29 Last Admin: 09/14/17 08:51 Dose: 4 units Lactulose (Cephulac) 10 gm PO Q6HR PRN PRN Reason: Constipation Stop: 11/10/17 11:10 Last Admin: 09/13/17 18:25 Dose: 10 gm Levothyroxine Sodium (Synthroid) 0.075 mg PO QDAC [facility] Stop: 11/11/17 07:29 Last Admin: 09/14/17 06:41 Dose: 0.075 mg Memantine (Namenda) 10 mg PO BID [facility] Stop: 11/10/17 16:59 Last Admin: 09/13/17 16:40 Dose: 10 mg Mupirocin (Bactroban Oint) 1 appl NS BID [facility] Stop: 09/17/17 09:01 Last Admin: 09/13/17 16:39 Dose: 1 appl Ondansetron HCl (Zofran) 4 mg IV Q8H PRN PRN Reason: Nausea / Vomiting Stop: 11/10/17 15:18 Rivaroxaban (Xarelto) 10 mg PO DAILY [facility] Stop: 11/11/17 08:59 Last Admin: 09/13/17 09:13 Dose: 10 mg Tramadol HCl (Ultram) 50 mg PO Q6H PRN PRN Reason: Pain (Moderate) Stop: 11/10/17 11:10 Last Admin: 09/14/17 02:46 Dose: 50 mg General: no acute distress, well developed, well nourished HEENT: atraumatic, normocephalic, PERRLA, EOMI, moist mucous membrane Neck: supple, no thyromegaly, no lymphadenopathy, no rigid Cardiovascular: S1S2, regular Lungs: clear to auscultation bilaterally, clear to percussion Abdomen: soft, no tender, no distended Extremities: no cyanosis, no clubbing, no edema Neurological: awake, alert, oriented Skin: intact Infectious Disease Assmt/Plan - Assessment Assessment: 1. UTI. 2. Diabetes mellitus type 2. 3. Hypertension. 4. Hyperlipidemia. 5. Dementia - Plan Plan: Initiate dc plan. on levaquin po for 5 days.
[2017-09-14 09:52] LABS: ANION GAP 12.3 (7.0-16.0); BUN - UREA NITROGEN 4 mg/dL (7-25); CARBON DIOXIDE 24.8 mEq/L (21.0-31.0); CHLORIDE 100 mEq/L (98-107); CREATININE - SERUM 0.6 mg/dL (0.6-1.2); GLUCOSE 210 mg/dL (70-105); POTASSIUM SERUM 3.1 mEq/L (3.5-5.1); SODIUM SERUM 134 mEq/L (136-145)
[2017-09-14 09:56] LABS: % BASOPHILS 0.5 % (0.0-2.0); % EOSINOPHILS 1.8 % (0.0-5.0); % LYMPHOCYTES 27.8 % (20.0-50.0); % MONOCYTES 9.1 % (2.0-10.0)
[2017-09-14 09:57] LABS: % NEUTROPHILS 60.8 % (40.0-80.0)
[2017-09-14] MEDS ORDERED: KCL 20mEq/100mL Premix 20 MEQ/100 ML PIGGYBACK IV ONE (11:01)
[2017-09-14] MEDS ORDERED: Potassium Chloride 20 mEq ER Tab PO ONE ×2 (12:00→19:00)
--- NOTE | 2017-09-14 14:42 | Internal Medicine Prog Note ---
Internal Medicine Subjective - Subjective Service Date: 09/14/17 Patient is:: awake, verbal Per staff patient has:: tolerating meds Internal Medicine Objective - Results Result Diagrams: 09/14/17 09:23 09/14/17 09:23 Recent Labs: Laboratory Last Values WBC 5.0 Th/cmm (4.8-10.8) 09/14/17 09: RBC 3.44 Mil/cmm (3.80-5.20) L 09/14/17: Hgb 9.6 gm/dL (12-16) L 09/14/17:23 Hct 29.7 % (41.0-60) L 09/14/17: MCV 86.4 fl (81-100) 09/14/17: MCH 27.9 pg (27.0-31.0) 09/14/17 MCHC Differential 32.3 pg (28.0-36.0) 09/14/17: RDW 17.9 % (11.5-20.0) 09/14/17: Plt Count 222 Th/cmm (150-400) 09/14/17 09:23 MPV 8.5 fl 09/14/17 09:23 Neutrophils % 60.8 % (40.0-80.0) 09/14/17: Band Neutrophils % 2 % (0-10) 09/10/17 21:39 Lymphocytes % 27.8 % (20.0-50.0) 09/14/17: Monocytes % 9.1 % (2.0-10.0) 09/14/17: Eosinophils % 1.8 % (0.0-5.0) 09/14/17 09: Basophils % 0.5 % (0.0-2.0) 09/14/17 09:23 Neutrophils (Manual) 49 % (40-80) 09/12/17 05:55 Lymphocytes 41 % (20-50) 09/12/17 05:55 Monocytes 8 % (2-10) 09/12/17 05:55 Eosinophils 2 % (0-5) 09/12/17 05:55 Atypical Lymphocytes 1 % 09/10/17 21:39 Hypochromia 1+ 09/10/17 21:39 Platelet Estimate ADEQUATE (NORMAL) 09/10/17 21:39 Anisocytosis 1+ 09/10/17 21:39 Microcytosis 1+ 09/10/17 21:39 Sodium 134 mEq/L (136-145) L 09/14/17 09:23 Potassium 3.1 mEq/L (3.5-5.1) L 09/14/17 09:23 Chloride 100 mEq/L (98-107) 09/14/17 09:23 Carbon Dioxide 24.8 mEq/L (21.0-31.0) 09/14/17 09:23 Anion Gap 12.3 (7.0-16.0) 09/14/17 09:23 BUN 4 mg/dL (7-25) L 09/14/17 09:23 Creatinine 0.6 mg/dL (0.6-1.2) 09/14/17 09:23 Est GFR ( Amer) TNP 09/14/17 09:23 Est GFR (Non-Af Amer) TNP 09/14/17 09:23 BUN/Creatinine Ratio 6.7 09/14/17 09:23 Glucose 210 mg/dL (70-105) H 09/14/17 09:23 POC Glucose 138 MG/DL (70 - 105) H 09/14/17 12:00 Hemoglobin A1c % 9.4 % (4.0-6.0) H 09/11/17 06:22 Calcium 8.0 mg/dL (8.6-10.3) L 09/14/17 09:23 Total Bilirubin 3.7 mg/dL (0.3-1.0) H 09/12/17 05:55 AST 188 U/L (13-39) H 09/12/17 05:55 ALT 53 U/L (7-52) H 09/12/17 05:55 Alkaline Phosphatase 174 U/L (34-104) H 09/12/17 05:55 Total Protein 5.9 gm/dL (6.0-8.3) L 09/12/17 05:55 Albumin 2.3 gm/dL (3.7-5.3) L 09/12/17 05:55 Globulin 3.6 gm/dL 09/12/17 05:55 Albumin/Globulin Ratio 0.6 (1.0-1.8) L 09/12/17 05:55 TSH 1.27 uIU/ml (0.34-5.60) 09/11/17 06:22 Urine Source RANDOM 09/10/17 23:05 Urine Color ORANGE 09/10/17 23:05 Urine Clarity SLIGHT CLOUDY (CLEAR) H 09/10/17 23:05 Urine pH 6.0 (4.6 - 8.0) 09/10/17 23:05 Ur Specific [place] 1.015 (1.005-1.030) 09/10/17 23:05 Urine Protein TRACE mg/dL (NEGATIVE) 09/10/17 23:05 Urine Glucose (UA) >=1000 mg/dL (NEGATIVE) H 09/10/17 23:05 Urine Ketones 15 mg/dL (NEGATIVE) H 09/10/17 23:05 Urine Blood NEGATIVE (NEGATIVE) 09/10/17 23:05 Urine Nitrate NEGATIVE (NEGATIVE) 09/10/17 23:05 Urine Bilirubin MODERATE (NEGATIVE) H 09/10/17 23:05 Urine Urobilinogen 1.0 E.U./dL (0.2 - 1.0) 09/10/17 23:05 Ur Leukocyte Esterase SMALL (NEGATIVE) H 09/10/17 23:05 Urine RBC 2-5 /hpf (0-5) 09/10/17 23:05 Urine WBC >100 /hpf (0-5) H 09/10/17 23:05 Ur Epithelial Cells FEW /lpf (FEW) 09/10/17 23:05 Urine Bacteria 3+ /hpf (NONE SEEN) H 09/10/17 23:05 - Physical Exam Vitals and I&O: Vital Signs Temp 97.4 F 09/14/17 08:00 Pulse 103 09/14/17 10:17 Resp 18 09/14/17 10:31 BP 123/63 09/14/17 10:17 Pulse Ox 99 09/14/17 08:00 Intake & Output 09/13/17 09/14/17 09/14/17 18:59 06:59 18:59 Intake Total 1250 Balance 1250 Weight (lbs) 135 lb Intake: Intake, IV Amount 1000 Sodium Chloride 0.9% 1, 1000 000 ml @ 75 mls/hr IV . [id number] [facility] Rx#:[id number] Oral 250 Active Medications: Current Medications Acetaminophen (Tylenol) 650 mg PO Q4HR PRN PRN Reason: temp >100.4F Stop: 11/10/17 11:10 Last Admin: 09/14/17 12:05 Dose: 650 mg Acetaminophen (Tylenol) 650 mg PO Q4HR PRN PRN Reason: Pain (Mild) Stop: 11/10/17 11:10 Amlodipine Besylate (Norvasc) 5 mg PO DAILY [facility] Stop: 11/11/17 08:59 Last Admin: 09/14/17 10:17 Dose: 5 mg Carbidopa/Levodopa (Sinemet 25 Mg-250 Mg) 2 tab PO BID [facility] Stop: 11/10/17 16:59 Last Admin: 09/14/17 10:17 Dose: 2 tab Donepezil HCl (Aricept) 10 mg PO HS [facility] Stop: 11/10/17 20:59 Last Admin: 09/13/17 20:54 Dose: 10 mg Gabapentin (Neurontin) 100 mg PO TID [facility] Stop: 11/10/17 13:59 Last Admin: 09/14/17 13:18 Dose: 100 mg Ceftriaxone Sodium 1 gm/ (Sodium Chloride) 50 mls @ 100 mls/hr IV Q24HR [facility] Stop: 11/11/17 00:59 Last Admin: 09/14/17 00:23 Dose: 100 mls/hr Sodium Chloride (Nacl 0.9%) 1,000 mls @ 75 mls/hr IV .[id number] [facility] Stop: 11/10/17 05:28 Last Admin: 09/14/17 06:41 Dose: 75 mls/hr Potassium Chloride 20 meq/ (Sodium Chloride) 260 mls @ 130 mls/hr IV X1 ONE Stop: 09/14/17 14:59 Last Admin: 09/14/17 13:49 Dose: 130 mls/hr Insulin Aspart (Novolog Insulin Sliding Scale) 0 units SUBQ ACHS [facility] PRN Reason: Protocol Stop: 11/10/17 16:29 Last Admin: 09/14/17 12:09 Dose: Not Given Lactulose (Cephulac) 10 gm PO Q6HR PRN PRN Reason: Constipation Stop: 11/10/17 11:10 Last Admin: 09/13/17 18:25 Dose: 10 gm Levothyroxine Sodium (Synthroid) 0.075 mg PO QDAC [facility] Stop: 11/11/17 07:29 Last Admin: 09/14/17 06:41 Dose: 0.075 mg Memantine (Namenda) 10 mg PO BID [facility] Stop: 11/10/17 16:59 Last Admin: 09/14/17 10:17 Dose: 10 mg Mupirocin (Bactroban Oint) 1 appl NS BID [facility] Stop: 09/17/17 09:01 Last Admin: 09/14/17 10:19 Dose: 1 appl Ondansetron HCl (Zofran) 4 mg IV Q8H PRN PRN Reason: Nausea / Vomiting Stop: 11/10/17 15:18 Rivaroxaban (Xarelto) 10 mg PO DAILY [facility] Stop: 11/11/17 08:59 Last Admin: 09/14/17 10:17 Dose: 10 mg Tramadol HCl (Ultram) 50 mg PO Q6H PRN PRN Reason: Pain (Moderate) Stop: 11/10/17 11:10 Last Admin: 09/14/17 02:46 Dose: 50 mg General: alert HEENT: NC/AT, PERRLA Neck: Supple Lungs: CTAB Cardiovascular: RRR, Normal S1, Normal S2 Abdomen: soft, non-tender, non-distended, positive bowel sound Neurological: alert Internal Medicine Assmt/Plan - Assessment Assessment: 1. UTI. 2. Diabetes mellitus type 2. 3. Hypertension. 4. Hyperlipidemia. 5. Dementia - Plan Plan: continue ivabx replace k+ follow up labs in am continue current orders
--- NOTE | 2017-09-14 21:44 | Progress Notes ---
DATE: 09/14/2017 Case was discussed with staff and reviewed the records. The patient continues to be demented, confused. She has mittens on both of her and she still gets at time agitated. She is compliant with the medication with no side effects, no sedation and no nausea. She has Parkinson's disease. I am reluctant to give her any antipsychotics. She is already on medication for her dementia and believes that her behavior improved and her medical condition improve. Thank you very much for allowing me to participate in the care of this most interesting lady. JOB# [id number]
[2017-09-15] MEDS: cefTRIAXone 1 GM in Sodium Chloride 0.9% 50 ML IV SCH (00:27)
[2017-09-15] MEDS: Levothyroxine 0.075 Mg Tab PO SCH (06:42)
[2017-09-15] MEDS: INSULIN ASPART SLIDING SCALE 100 UNITS/ML UNIT SUBQ SCH ×3 (06:43→16:57)
[2017-09-15 08:38] LABS: BUN - UREA NITROGEN 4 mg/dL (7-25); CALCIUM SERUM 8.2 mg/dL (8.6-10.3); CARBON DIOXIDE 21.1 mEq/L (21.0-31.0); CHLORIDE 83 mEq/L (98-107); CREATININE - SERUM 0.5 mg/dL (0.6-1.2); GLUCOSE 178 mg/dL (70-105); MAGNESIUM 1.4 mg/dL (1.9-2.7); POTASSIUM SERUM 3.5 mEq/L (3.5-5.1)
[2017-09-15 08:55] LABS: HEMATOCRIT 29.5 % (41.0-60); HEMOGLOBIN 9.7 gm/dL (12-16); MEAN CELL VOLUME 86.5 fl (81-100); MEAN CORPUSCULAR HEMOGLOBIN 28.3 pg (27.0-31.0); MEAN CORPUSCULAR HGB CONC 32.8 pg (28.0-36.0); MEAN PLATELET VOLUME 10.8 fl; PLATELET COUNT 210 Th/cmm (150-400); RED BLOOD COUNT 3.41 Mil/cmm (3.80-5.20); RED CELL DISTRIBUTION WIDTH 18.1 % (11.5-20.0)
[2017-09-15 08:58] LABS: MANUAL DIFF REQUIRED? YES
[2017-09-15 09:13] LABS: ANION GAP 31.4 (7.0-16.0); SODIUM SERUM 132 mEq/L (136-145)
[2017-09-15 09:43] LABS: EOSINOPHIL 3 % (0-5); LYMPHOCYTE 30 % (20-50); MONOCYTE 3 % (2-10); NEUTROPHILS 64 % (40-80); TOTAL CELLS COUNTED 100
--- NOTE | 2017-09-15 12:52 | Infectious Disease Prog Note ---
Infectious Disease Subjective - Review of Systems Service Date: 09/15/17 Subjective: DC ang dictated,. Infectious Disease Objective - Results Result Diagrams: 09/15/17 07:30 09/15/17 07:30 Recent Labs: Laboratory Last Values WBC 6.0 Th/cmm (4.8-10.8) 09/15/17 07:30 RBC 3.41 Mil/cmm (3.80-5.20) L 09/15/17 07:30 Hgb 9.7 gm/dL (12-16) L 09/15/17 07:30 Hct 29.5 % (41.0-60) L 09/15/17 07:30 MCV 86.5 fl (81-100) 09/15/17 07:30 MCH 28.3 pg (27.0-31.0) 09/15/17 07:30 MCHC Differential 32.8 pg (28.0-36.0) 09/15/17 07:30 RDW 18.1 % (11.5-20.0) 09/15/17 07:30 Plt Count 210 Th/cmm (150-400) 09/15/17 07:30 MPV 10.8 fl 09/15/17 07:30 Neutrophils % 60.8 % (40.0-80.0) 09/14/17 09:23 Band Neutrophils % 2 % (0-10) 09/10/17 21:39 Lymphocytes % 27.8 % (20.0-50.0) 09/14/17 09:23 Monocytes % 9.1 % (2.0-10.0) 09/14/17 09:23 Eosinophils % 1.8 % (0.0-5.0) 09/14/17 09:23 Basophils % 0.5 % (0.0-2.0) 09/14/17 09:23 Neutrophils (Manual) 64 % (40-80) 09/15/17 07:30 Lymphocytes 30 % (20-50) 09/15/17 07:30 Monocytes 3 % (2-10) 09/15/17 07:30 Eosinophils 3 % (0-5) 09/15/17 07:30 Atypical Lymphocytes 1 % 09/10/17 21:39 Hypochromia 1+ 09/10/17 21:39 Platelet Estimate ADEQUATE (NORMAL) 09/10/17 21:39 Anisocytosis 1+ 09/10/17 21:39 Microcytosis 1+ 09/10/17 21:39 Sodium 132 mEq/L (136-145) L 09/15/17 07:30 Potassium 3.5 mEq/L (3.5-5.1) 09/15/17 07:30 Chloride 83 mEq/L (98-107) L 09/15/17 07:30 Carbon Dioxide 21.1 mEq/L (21.0-31.0) 09/15/17 07:30 Anion Gap 31.4 (7.0-16.0) H 09/15/17 07:30 BUN 4 mg/dL (7-25) L 09/15/17 07:30 Creatinine 0.5 mg/dL (0.6-1.2) L 09/15/17 07:30 Est GFR ( Amer) TNP 09/15/17 07:30 Est GFR (Non-Af Amer) TNP 09/15/17 07:30 BUN/Creatinine Ratio 8.0 09/15/17 07:30 Glucose 178 mg/dL (70-105) H 09/15/17 07:30 POC Glucose 95 MG/DL (70 - 105) 09/15/17 12:13 Hemoglobin A1c % 9.4 % (4.0-6.0) H 09/11/17 06:22 Calcium 8.2 mg/dL (8.6-10.3) L 09/15/17 07:30 Magnesium 1.4 mg/dL (1.9-2.7) L 09/15/17 07:30 Total Bilirubin 3.7 mg/dL (0.3-1.0) H 09/12/17 05:55 AST 188 U/L (13-39) H 09/12/17 05:55 ALT 53 U/L (7-52) H 09/12/17 05:55 Alkaline Phosphatase 174 U/L (34-104) H 09/12/17 05:55 Total Protein 5.9 gm/dL (6.0-8.3) L 09/12/17 05:55 Albumin 2.3 gm/dL (3.7-5.3) L 09/12/17 05:55 Globulin 3.6 gm/dL 09/12/17 05:55 Albumin/Globulin Ratio 0.6 (1.0-1.8) L 09/12/17 05:55 TSH 1.27 uIU/ml (0.34-5.60) 09/11/17 06:22 Urine Source RANDOM 09/10/17 23:05 Urine Color ORANGE 09/10/17 23:05 Urine Clarity SLIGHT CLOUDY (CLEAR) H 09/10/17 23:05 Urine pH 6.0 (4.6 - 8.0) 09/10/17 23:05 Ur Specific [place] 1.015 (1.005-1.030) 09/10/17 23:05 Urine Protein TRACE mg/dL (NEGATIVE) 09/10/17 23:05 Urine Glucose (UA) >=1000 mg/dL (NEGATIVE) H 09/10/17 23: Urine Ketones 15 mg/dL (NEGATIVE) H 09/10/17 23:05 Urine Blood NEGATIVE (NEGATIVE) 09/10/17 23: Urine Nitrate NEGATIVE (NEGATIVE) 09/10/17 23: Urine Bilirubin MODERATE (NEGATIVE) H 09/10/17 23: Urine Urobilinogen 1.0 E.U./dL (0.2 - 1.0) 09/10/17 23:05 Ur Leukocyte Esterase SMALL (NEGATIVE) H 09/10/17 23:05 Urine RBC 2-5 /hpf (0-5) 09/10/17 23:05 Urine WBC >100 /hpf (0-5) H 09/10/17 23:05 Ur Epithelial Cells FEW /lpf (FEW) 09/10/17 23:05 Urine Bacteria 3+ /hpf (NONE SEEN) H 09/10/17 23:05 - Physical Exam Vitals and I&O: Vital Signs Temp 97.3 F 09/15/17 00:00 Pulse 57 09/15/17 08:34 Resp 18 09/15/17 09:30 BP 97/57 09/15/17 08:34 Pulse Ox 98 09/15/17 00:00 Intake & Output 09/14/17 09/15/17 09/15/17 18:59 06:59 18:59 Intake Total 400 1000 Balance 400 1000 Weight (lbs) 61.235 kg Intake: Intake, IV Amount 1000 Sodium Chloride 0.9% 1, 1000 000 ml @ 75 mls/hr IV . [id number] [facility] Rx#:[id number] Oral 400 Other: # Voids 2 # Bowel Movements 1 Active Medications: Current Medications Acetaminophen (Tylenol) 650 mg PO Q4HR PRN PRN Reason: temp >100.4F Stop: 11/10/17 11:10 Last Admin: 09/14/17 20:59 Dose: 650 mg Acetaminophen (Tylenol) 650 mg PO Q4HR PRN PRN Reason: Pain (Mild) Stop: 11/10/17 11:10 Amlodipine Besylate (Norvasc) 5 mg PO DAILY [facility] Stop: 11/11/17 08:59 Last Admin: 09/15/17 08:34 Dose: Not Given Carbidopa/Levodopa (Sinemet 25 Mg-250 Mg) 2 tab PO BID [facility] Stop: 11/10/17 16:59 Last Admin: 09/15/17 08:32 Dose: 2 tab Donepezil HCl (Aricept) 10 mg PO HS [facility] Stop: 11/10/17 20:59 Last Admin: 09/14/17 20:59 Dose: 10 mg Gabapentin (Neurontin) 100 mg PO TID [facility] Stop: 11/10/17 13:59 Last Admin: 09/15/17 08:32 Dose: 100 mg Sodium Chloride (Nacl 0.9%) 1,000 mls @ 75 mls/hr IV .[id number] [facility] Stop: 11/10/17 05:28 Last Admin: 09/14/17 21:45 Dose: 75 mls/hr Insulin Aspart (Novolog Insulin Sliding Scale) 0 units SUBQ ACHS [facility] PRN Reason: Protocol Stop: 11/10/17 16:29 Last Admin: 09/15/17 12:29 Dose: Not Given Lactulose (Cephulac) 10 gm PO Q6HR PRN PRN Reason: Constipation Stop: 11/10/17 11:10 Last Admin: 09/13/17 18:25 Dose: 10 gm Levofloxacin (Levaquin) 250 mg PO DAILY [facility] Stop: 09/20/17 08:59 Levothyroxine Sodium (Synthroid) 0.075 mg PO QDAC [facility] Stop: 11/11/17 07:29 Last Admin: 09/15/17 06:42 Dose: 0.075 mg Memantine (Namenda) 10 mg PO BID [facility] Stop: 11/10/17 16:59 Last Admin: 09/15/17 08:32 Dose: 10 mg Mupirocin (Bactroban Oint) 1 appl NS BID [facility] Stop: 09/17/17 09:01 Last Admin: 09/15/17 08:34 Dose: 1 appl Ondansetron HCl (Zofran) 4 mg IV Q8H PRN PRN Reason: Nausea / Vomiting Stop: 11/10/17 15:18 Rivaroxaban (Xarelto) 10 mg PO DAILY [facility] Stop: 11/11/17 08:59 Last Admin: 09/15/17 08:32 Dose: 10 mg Tramadol HCl (Ultram) 50 mg PO Q6H PRN PRN Reason: Pain (Moderate) Stop: 11/10/17 11:10 Last Admin: 09/14/17 02:46 Dose: 50 mg Infectious Disease Assmt/Plan - Assessment Assessment: 1. UTI. 2. Diabetes mellitus type 2. 3. Hypertension. 4. Hyperlipidemia. 5. Dementia - Plan Plan: Initiate dc plan. on levaquin po for 5 days. Nutritional Asmnt/Malnutr-PDOC - Dietary Evaluation Malnutrition Findings (Please click <Entered> for more info): Nutritional Asmnt/Malnutrition Start: 09/14/17 16: 27 Text: Status: Complete Freq: Document 09/14/17 16:27 LCHENG (Rec: 09/14/17 16:44 LCHENG [email or web address]) Nutritional Asmnt/Malnutrition Patient General Information Nutritional Screening High Risk Consult Diagnosis UTI Pertinent Medical Hx/Surgical Hx HTN, DM, hyperlipidemia Subjective Information Consult received for rufino 12 on 09/13, elevated BG on 09/11. Per H&P, pt had vomiting and poor oral intake before admission. Per EMR, PO intake 25-50%. Current Diet Order/ Nutrition Support Pureed, CCHO 75gm, honey thick liquid Pertinent Medications novolog, synthroid, nacl 0.9% Pertinent Labs 09/14 Na 134, K 3.1, Cl 100, BUN 4, Cr 0.6, Glucose 210, POC 138-215 09/11 A1c 9.4 Nutritional Hx/Data Height 1.5 m Height (Calculated Centimeters) 149.9 Current Weight (lbs) 61.235 kg Weight (Calculated Kilograms) 61.2 Weight (Calculated Grams) 12790.0 [place] Body Weight 98 Body Mass Index (BMI) 27.2 Weight Status Overweight GI Symptoms GI Symptoms None Last BM no BM since adm Difficult in: None Skin Integrity/Comment: rash to right arm, pressure area to left buttocks Estimated Nutritional Goals BEE in Kcals: Using Current wt Calories/Kcals/Kg 25-30 adj wt 61kg Kcals Calculated 8737-8790 Protein: Using Current wt Protein g/k-1.2 Protein Calculated 61-73 Fluid: ml 6237-9661 Nutritional Problem 1. Problem Problem altered nutrition related lab values Etiology hx of DM Signs/Symptoms: Glucose 210, POC 138-215, A1c 9.4 Malnutrition Alert Protein-Calorie Malnutrition N/A Is there a minimum of two criteria No selected? Query Text:Check all the applicable criteria. A minimum of two criteria are recommended for diagnosis of either severe or non-severe malnutrition. Intervention/Recommendation Comments 1. Continue with current diet as ordered. If PO intake continue low, will consider nutrition supplements 2. Monitor PO intake, wt, labs and skin integrity 3. F/U as moderate risk in 3-5 days, 3/2-3/4, PO check 3/2 Expected Outcomes/Goals Expected Outcomes/Goals 1. PO intake to meet at least 75% of nutritional needs. 2. Wt stability, skin to remain intact, labs to approach WNL.
--- NOTE | 2017-09-15 18:56 | Progress Notes ---
DATE: PSYCHIATRIC PROGRESS NOTE Chart reviewed and the patient interviewed. Also discussed the patient's condition with the staff and reviewed records and labs. The patient currently is calm and cooperative with her treatment. She also is trying to interact slightly more, but she is still confused and forgetful. She is compliant with taking her medications with no side effects of medications. Staff reports that the patient still has episodes of agitation, but seems to be less than 4. ASSESSMENT: The patient is still psychotic and agitated as well as she is still confused and guarded. TREATMENT PLAN: Continue Aricept at 10 mg every day as well as gabapentin 100 mg 3 times a day and Namenda twice a day. Also, continue to monitor her behavior and her medications and continue to work on her poor impulse control. JOB# [id number]
--- NOTE | 2017-09-15 19:46 | Discharge Summary ---
DATE OF DISCHARGE: 09/15/2017 CHIEF COMPLAINT: Vomiting and poor oral intake with confusion. HISTORY OF PRESENT ILLNESS AND HOSPITAL COURSE: The patient is a 72-year-old female with a past medical history of hypertension, diabetes mellitus, hyperlipidemia, brought in from nursing facility for vomiting and poor oral intake. The patient was diagnosed to have a UTI. The patient also confused, so psychiatric consultation was called. Medications were adjusted. The patient was started on Rocephin. The patient did well, improved clinically. The patient never had any fever. The patient was made stable to discharge yesterday; however, the patient has low potassium, so she was kept for one more night. The potassium is better today. PHYSICAL EXAMINATION: VITAL SIGNS: Temperature 97.3, pulse 57, respiration 18, blood pressure 97/57. GENERAL: The patient is comfortable. HEENT: Head is normocephalic, atraumatic. Oral cavity moist, pink. Eyes: Pallor is present, no icterus, PERRLA, and EOMI. NECK: Supple, no JVD, no carotid bruit. Trachea in midline. CHEST: Bilateral breath sounds. No crackles or wheezing. HEART: S1, S2 within normal limits. Regular rhythm. No murmur, no gallop. ABDOMEN: Soft, nontender, nondistended. Bowel sounds present. EXTREMITIES: No cyanosis, no clubbing, no edema. NEUROLOGIC: Alert and awake. Confused at times. LABORATORY DATA: Current lab shows WBC count 6000, hemoglobin 9.7, hematocrit 29.5, platelets are 210,000. Sodium 132, potassium 3.5, chloride 83, bicarbonate is 21, BUN is 4, creatinine 0.5, glucose is 178. DISCHARGE DIAGNOSIS: 1. Urinary tract infection. 2. Dementia. 3. Hypertension. 4. Atrial fibrillation. 5. Parkinson disease. 6. Diabetes mellitus type 2. 7. Hypothyroidism. 8. Osteoarthritis. 9. Hypokalemia, improved. DISCHARGE DISPOSITION: ____ nursing facility. DISCHARGE CONDITION: Stable. DISCHARGE MEDICATIONS: As per medication reconciliation sheet. DISCHARGE REFERRAL: The patient can be followed by Dr. Henry at nursing facility. JOB# [id number]
--- NOTE | 2017-09-17 00:34 | Discharge Summary ---
DATE OF DISCHARGE: 09/15/2017 The patient was admitted on 09/11/2017 at [facility] and was discharged on 09/15/2017. This patient is admitted for a history of urinary infection, severe dementia, altered level of consciousness, atrial fibrillation, cardiomyopathy, history of Parkinson disease, history of diabetes, history of hypothyroidism, history of osteoarthritis, and severe hypokalemia. The patient ____. The patient gradually improved. The patient was in stable condition on September 15 with a final diagnosis of urinary tract infection, improving; dementia ____; hypertension, controlled; atrial fibrillation, controlled; ____, under control; diabetes type 2; hypothyroidism; and osteoarthritis ____. The patient was sent to ____. MEDICATIONS: See the reconciliation sheet. ACTIVITY: As tolerated. CONDITION AT THE TIME OF DISCHARGE: Stable. [facility]# [id number]
== END 2017-09-15 17:00 | disposition home or self-care (01) | DRG 689 ==
LOC: ER 20:22 → MSI 09-11 00:01
PROVIDERS: ADMIT Internal Medicine; ATTEND Internal Medicine
DX: N39.0 Urinary tract infection, site not specified (principal); E41 Nutritional marasmus; F03.91 Unspecified dementia, unspecified severity, with behavioral disturbance; G20 Parkinson's disease; I48.91 Unspecified atrial fibrillation; E11.9 Type 2 diabetes mellitus without complications; I10 Essential (primary) hypertension; E03.9 Hypothyroidism, unspecified; M19.90 Unspecified osteoarthritis, unspecified site; E87.6 Hypokalemia; E78.5 Hyperlipidemia, unspecified; Z79.4 Long term (current) use of insulin
CPT/HCPCS: 36415-UA; 71045-TC; 76770-TC; 80048-TC; 80053-TC; 81001-TC; 82948-90; 83036-90; 83735-TC; 84132-TC; 84443-TC; 85007-TC; 85025-TC; 85027-TC; 87086-90; 93005; J0696; J1815; J2001; J3480; J7030; Z7610